=== PATIENT | female | born 1995 | race Caucasian/White ===

== ENCOUNTER 2016-11-07 16:40 | Emergency (ER) | payer OTHER ==
[~2016-11-07] VITALS: Ht 154.9 cm; Wt 78.9 kg
[~2016-11-07 16:40] MED LIST: PREN-380 PO
[2016-11-07 16:45] VITALS: BP 106/69
--- NOTE | 2016-11-07 16:54 | NUR ---
Patient ambulated to bed 7. SKILLED NURSING FACILITIES PROFESSIONAL evaluating patient at bedside.
--- NOTE | 2016-11-07 17:03 | NUR ---
Patient being evaluated by physician at bedside.
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
--- NOTE | 2016-11-07 17:05 | NUR ---
PATIENT REMAINED PAIN FREE/ NO DISCOMFORT PRESENTED, FAMILY AT BEDSIDE
[2016-11-07 17:19] VITALS: BP 106/69
--- NOTE | 2016-11-07 17:19 | NUR ---
Patient discharged with v/s stable. Written and verbal after care instructions given and explained. Patient verbalized understanding. Ambulatory with steady gait. All questions addressed prior to discharge. Advised to follow up with PMD.
--- NOTE | 2016-11-07 17:19 | NUR ---
Chart checked and completed. The patient's care was reviewed and supervised by Rishi Williamson RN.
== END 2016-11-07 17:19 | disposition home or self-care (01) ==
LOC: MED 16:40 → EDSTATUS 16:40 → MED 17:19
DX: O9A.212 Injury, poisoning and certain other consequences of external causes complicating pregnancy, second trimester (principal); R10.9 Unspecified abdominal pain; V49.40XA Driver injured in collision with unspecified motor vehicles in traffic accident, initial encounter; Y93.89 Activity, other specified; Y92.89 Other specified places as the place of occurrence of the external cause; Y99.8 Other external cause status
CPT/HCPCS: 59025; 76805; 81000; 99281; Q0092; 81002; 99284

== ENCOUNTER 2017-02-14 15:48 | Inpatient (IN) | payer OTHER ==
[~2017-02-14] VITALS: Ht 154.9 cm; Wt 72.6 kg
[2017-02-14] MEDS ORDERED: LACTATED RINGERS 1,000 ML IV SCH (16:19)
[2017-02-14] MEDS ORDERED: METHYLERGONOVINE 0.2 MG/ML AMP IM PRN (16:20)
[2017-02-14] MEDS ORDERED: PROMETHAZINE 25 MG/ML VIAL IVP PRN (16:20)
[2017-02-14] MEDS ORDERED: NALBUPHINE HYDROCHLORIDE 10 MG/ML VIAL IVP PRN (16:20)
[2017-02-14] MEDS ORDERED: CARBOPROST 250 MCG/ML AMP IM PRN (16:20)
[2017-02-14 16:57] LABS: APPEARANCE,URINE SL CLOUDY (CLEAR); BLOOD, URINE NEGATIVE (NEGATIVE); COLOR,URINE YELLOW (YELLOW); LEUKOCYTE ESTERASE ,URINE 3+ (NEGATIVE); NITRITE, URINE NEGATIVE (NEGATIVE); UGLUCOSE NEGATIVE (NEGATIVE)
[2017-02-14 17:01] LABS: BILIRUBIN,URINE NEGATIVE (NEGATIVE)
[2017-02-14 17:01] LABS: BASOPHILS # (AUTO) 0.1 K/uL (0.00-0.22); BASOPHILS % (AUTO) 1.2 % (0.0-2.0); EOSINOPHILS # (AUTO) 0.1 K/uL (0-0.4); EOSINOPHILS % (AUTO) 1.1 % (0.0-4.0); HEMATOCRIT 36.7 % (36-48); HEMOGLOBIN 12.5 g/dL (12.0-16.0); LYMPHOCYTES # (AUTO) 1.6 K/uL (2.5-16.5); MEAN CORPUSCULAR HEMOGLOBIN 31 pg (27-31); MEAN CORPUSCULAR HGB CONC 34 g/dL (33-37); MEAN CORPUSCULAR VOLUME 92 fL (80-94); MONOCYTES # (AUTO) 0.7 K/uL (0.8-1.0); MONOCYTES % (AUTO) 9.1 % (1.7-9.3); NEUTROPHILS # (AUTO) 4.9 K/uL (1.8-7.7); NEUTROPHILS % (AUTO) 67.6 % (42.2-75.2); PLATELET COUNT (AUTO) 140 K/uL (140-450); RED CELL DISTRIBUTION WIDTH 13.9 % (11.6-13.7); WHITE BLOOD COUNT (AUTO) 7.4 K/uL (4.8-10.8)
[2017-02-14 17:06] LABS: BARBITURATE, URINE NEG. ng/ml (NEG <=200); BENZODIAZEPINE, URINE NEG. ng/mL (NEG <=200); CANNABINOID, URINE NEG. ng/mL (NEG <=50); COCAINE, URINE NEG. ng/mL (NEG <=300); OPIATE, URINE NEG. ng/mL (NEG <=2000); PHENCYCLIDINE SCREEN,URINE NEG. ng/mL (NEG <=25)
[2017-02-14 17:09] LABS: RBC,URINE 0-5 /HPF (0-5); WBC,URINE 15-30 /HPF (0-5)
[2017-02-14] MEDS ORDERED: MISOPROSTOL 25 MCG TAB ONE (20:14)
[2017-02-14] MEDS ORDERED: OXYTOCIN 20 UNITS/LR PREMIX 1,000 ML IV SCH (23:00)
[2017-02-15] MEDS ORDERED: OXYTOCIN 20 UNITS/LR PREMIX 1,000 ML IV ONE (00:10)
[2017-02-15] MEDS ORDERED: PROMETHAZINE 25 MG/ML VIAL ONE (00:10)
[2017-02-15] MEDS ORDERED: NALBUPHINE HYDROCHLORIDE 10 MG/ML VIAL ONE (00:10)
[2017-02-15] MEDS ORDERED: OXYTOCIN 10 UNITS/ML VIAL ONE (02:10)
[2017-02-15] MEDS ORDERED: LIDOCAINE 1% 50 ML ONE (02:10)
[2017-02-15] MEDS ORDERED: HYDROcodone/APAP 5/325 MG 1 TAB TAB PO PRN (03:10)
[2017-02-15] MEDS ORDERED: METHYLERGONOVINE 0.2 MG/ML AMP IM PRN (03:10)
[2017-02-15] MEDS ORDERED: BENZOCAINE/MENTHOL 20%-0.5% 60 GM CAN TP PRN (03:10)
[2017-02-15] MEDS ORDERED: IBUPROFEN 800 MG TAB PO PRN (03:10)
[2017-02-15] MEDS ORDERED: oxyCODONE/APAP 5/325 MG 1 TAB TAB PO PRN (03:10)
[2017-02-15] MEDS ORDERED: MEASLES, MUMPS, AND RUBELLA 1 VIAL SQVAC PRN (03:10)
[2017-02-15] MEDS ORDERED: OXYTOCIN 10 UNITS/ML VIAL IM PRN (03:10)
[2017-02-15] MEDS ORDERED: TEMAZEPAM 15 MG CAP PO PRN (03:10)
[2017-02-15] MEDS ORDERED: DOCUSATE SOD/SENNA 50/8.6 MG 1 TAB PO SCH (21:00)
[2017-02-16 05:30] LABS: HEMATOCRIT 32.9 % (36-48); HEMOGLOBIN 10.6 g/dL (12.0-16.0)
--- NOTE | 2017-02-16 11:25 | NUR ---
PATIENT HAS BEEN SCREENED AND CATEGORIZED LOW NUTRITION RISK. PATIENT WILL BE SEEN WITHIN 7 DAYS OF ADMISSION. 02/21/[address]
== END 2017-02-16 13:50 | disposition home or self-care (01) | DRG 560 ==
LOC: MLD 15:48 → MFCC 02-15 05:00
PROVIDERS: ADMIT Obstetrics & Gynecology; ATTEND Obstetrics & Gynecology
PROC: 10E0XZZ Delivery of Products of Conception, External Approach (ICD-10-PCS; principal; 2017-02-15)
PROC: 3E0P7GC Introduction of Other Therapeutic Substance into Female Reproductive, Via Natural or Artificial Opening (ICD-10-PCS; 2017-02-15)
PROC: 0W8NXZZ Division of Female Perineum, External Approach (ICD-10-PCS; 2017-02-15)
DX: O77.0 Labor and delivery complicated by meconium in amniotic fluid (principal); Z83.6 Family history of other diseases of the respiratory system; Z37.0 Single live birth; Z3A.40 40 weeks gestation of pregnancy; Z28.21 Immunization not carried out because of patient refusal
CPT/HCPCS: 36415; 51702; 59200; 59409; 80305; 81001; 85018; 85025; 86592; 86886; 86900; 86901; 87086; C1758; J2001; J2300; J2550; J2590; J7120